=== PATIENT | female | born 1935 | race Caucasian/White ===

== ENCOUNTER → 2016-11-02 | Outpatient (CLI) | payer MEDICARE | LOC: RAD 15:53 | PROVIDERS: ATTEND Internal Medicine | DX: J20.8 Acute bronchitis due to other specified organisms (principal) | CPT/HCPCS: 71020 ==

== ENCOUNTER → 2016-11-02 | Outpatient (REF) | payer MEDICARE ==
[2016-11-02 16:52] LABS: ANION GAP 17.4 MEQ/L (3-15)
[2016-11-02 16:53] LABS: BASOPHILS % (AUTO) 1 % (0-2); EOSINOPHILS # (AUTO) 0.1 10^3uL; EOSINOPHILS % (AUTO) 1 % (0-4); MEAN CORPUSCULAR HEMOGLOBIN 29.6 PG (26.0-34.0); MEAN CORPUSCULAR HGB CONC 35.1 g/dL (31.0-37.0); MEAN CORPUSCULAR VOLUME 85 FL (80-100); MEAN PLATELET VOLUME 8.8 FL (6.0-9.5); MONOCYTES % (AUTO) 11 % (3-11); NEUTROPHILS # (AUTO) 6.4 X10^3; NEUTROPHILS % (AUTO) 70 % (51-67); PLATELET COUNT 679 10^3uL (150-450); WHITE BLOOD COUNT 9.14 10^3uL (4.0-11.0)
== END ==
LOC: LAB 15:55
PROVIDERS: ATTEND Internal Medicine
DX: J20.8 Acute bronchitis due to other specified organisms (principal); R53.1 Weakness; I10 Essential (primary) hypertension
CPT/HCPCS: 80048; 84450; 85025; 86140

== ENCOUNTER → 2016-11-06 | Outpatient (CLI) | payer MEDICARE ==
[2016-11-06 09:18] LABS: BASOPHILS % (AUTO) 1 % (0-2); EOSINOPHILS # (AUTO) 0.1 10^3uL; EOSINOPHILS % (AUTO) 1 % (0-4); LYMPHOCYTES # (AUTO) 1.1 X10^3; MEAN CORPUSCULAR HEMOGLOBIN 29.4 PG (26.0-34.0); MEAN CORPUSCULAR VOLUME 84 FL (80-100); MEAN PLATELET VOLUME 8.3 FL (6.0-9.5); MONOCYTES # (AUTO) 0.9 X10^3; MONOCYTES % (AUTO) 11 % (3-11); NEUTROPHILS # (AUTO) 5.7 X10^3; NEUTROPHILS % (AUTO) 73 % (51-67); PLATELET COUNT 663 10^3uL (150-450); WHITE BLOOD COUNT 7.91 10^3uL (4.0-11.0)
== END ==
LOC: LAB 08:53
PROVIDERS: ATTEND Internal Medicine
DX: J20.8 Acute bronchitis due to other specified organisms (principal); R53.1 Weakness
CPT/HCPCS: 36415; 80048; 85025; 86140

== ENCOUNTER → 2016-11-28 | Outpatient (CLI) | payer MEDICARE ==
[~2016-11-28] MED LIST: ALBU6.7H IH; ASPI-586 PO; ATN25T PO; CEFD300C PO; CHOL200025 PO; LEVO88TA4 PO; LOSA1TAB19 PO; METF500T4 PO; MNTL10T PO; MULT-954 PO; PRAV40TA2 PO; PRCD5U PO; SPRN25T PO
[2016-11-28 11:53] LABS: BASOPHILS % (AUTO) 1 % (0-2); EOSINOPHILS # (AUTO) 0.2 10^3uL; EOSINOPHILS % (AUTO) 1 % (0-4); LYMPHOCYTES # (AUTO) 0.6 X10^3; MEAN CORPUSCULAR HEMOGLOBIN 27.9 PG (26.0-34.0); MEAN CORPUSCULAR HGB CONC 32.4 g/dL (31.0-37.0); MEAN CORPUSCULAR VOLUME 86 FL (80-100); MONOCYTES # (AUTO) 0.7 X10^3; MONOCYTES % (AUTO) 7 % (3-11); NEUTROPHILS # (AUTO) 8.7 X10^3; NEUTROPHILS % (AUTO) 84 % (51-67); WHITE BLOOD COUNT 10.41 10^3uL (4.0-11.0)
[2016-11-28 12:13] LABS: PLATELET COUNT 989 10^3uL (150-450)
[2016-11-28 12:14] LABS: ANION GAP 19.2 MEQ/L (3-15)
== END ==
LOC: LAB 11:38
PROVIDERS: ATTEND Internal Medicine
DX: J20.8 Acute bronchitis due to other specified organisms (principal); I10 Essential (primary) hypertension; Z86.2 Personal history of diseases of the blood and blood-forming organs and certain disorders involving the immune mechanism; R53.1 Weakness
CPT/HCPCS: 36415; 80048; 84450; 85025; 86140

== ENCOUNTER 2016-12-01 19:51 | Emergency (ER) | payer MEDICARE ==
[~2016-12-01] VITALS: Ht 162.6 cm; Wt 49.6 kg
--- OUTSIDE RECORDS SUMMARY | 2016-12-01 19:57 | XMS REPORT | Continuity of Care Document ---
Author Author [facility] Address Unknown Phone Unavailable Allergies Active Description Code Type Severity Reaction Onset Reported/Identified Relationship to Patient Clinical Status Yes No Known Drug Allergies [id number] Drug Allergy Unknown N/ A 11/24/2016 Medications Problems Date Dx Coded Attending Type Code Diagnosis Diagnosed By 11/27/2014 JESSI FISHER MD Ot 599.0 03/10/2015 Ot 244.9 03/10/2015 Ot 401.1 03/10/2015 JESSI FISHER MD Ot 244.9 03/10/2015 JESSI FISHER MD Ot 276.0 03/10/2015 JESSI FISHER MD Ot 401.9 03/10/2015 JESSI FISHER MD Ot 790.29 03/10/2015 JESSI FISHER MD Ot 599.0 04/01/2015 JESSI FISHER MD Ot 244.9 04/01/2015 JESSI FISHER MD Ot 272.0 04/01/2015 JESSI FISHER MD Ot 401.9 04/01/2015 JESSI FISHER MD Ot 443.0 04/01/2015 JESSI FISHER MD Ot 733.00 04/01/2015 JESSI FISHER MD Ot 790.29 04/01/2015 JESSI FISHER MD Ot V70.0 07/07/2015 Ot E03.9 03/30/2016 JESSI FISHER MD Ot E03.9 HYPOTHYROIDISM, UNSPECIFIED 03/30/2016 JESSI FISHER MD Ot R73.09 OTHER ABNORMAL GLUCOSE 03/30/2016 JESSI FISHER MD Ot E03.9 HYPOTHYROIDISM, UNSPECIFIED 03/30/2016 JESSI FISHER MD Ot R73.09 OTHER ABNORMAL GLUCOSE 04/03/2016 JESSI FISHER MD Ot D72.829 ELEVATED WHITE BLOOD CELL COUNT, UNSPECI 04/03/2016 JESSI FISHER MD Ot E03.9 HYPOTHYROIDISM, UNSPECIFIED 04/03/2016 JESSI FISHER MD Ot E87.1 HYPO-OSMOLALITY AND HYPONATREMIA 04/03/2016 JESSI FISHER MD Ot I10 ESSENTIAL (PRIMARY) HYPERTENSION 04/03/2016 JESSI FISHER MD Ot M81.0 AGE-RELATED OSTEOPOROSIS W/O CURRENT PAT 04/03/2016 JESSI FISHER MD Ot R73.09 OTHER ABNORMAL GLUCOSE 04/03/2016 JESSI FISHER MD Ot Z00.00 ENCNTR FOR GENERAL ADULT MEDICAL EXAM W 04/03/2016 JESSI FISHER MD Ot D72.829 ELEVATED WHITE BLOOD CELL COUNT, UNSPECI 04/03/2016 JESSI FISHER MD Ot E03.9 HYPOTHYROIDISM, UNSPECIFIED 04/03/2016 JESSI FISHER MD Ot E87.1 HYPO-OSMOLALITY AND HYPONATREMIA 04/03/2016 JESSI FISHER MD Ot I10 ESSENTIAL (PRIMARY) HYPERTENSION 04/03/2016 JESSI FISHER MD Ot M81.0 AGE-RELATED OSTEOPOROSIS W/O CURRENT PAT 04/03/2016 JESSI FISHER MD Ot R73.09 OTHER ABNORMAL GLUCOSE 04/03/2016 JESSI FISHER MD Ot Z00.00 ENCNTR FOR GENERAL ADULT MEDICAL EXAM W 04/21/2016 JESSI FISHER MD Ot D72.829 ELEVATED WHITE BLOOD CELL COUNT, UNSPECI 04/21/2016 JESSI FISHER MD Ot E03.9 HYPOTHYROIDISM, UNSPECIFIED 04/21/2016 JESSI FISHER MD Ot E87.1 HYPO-OSMOLALITY AND HYPONATREMIA 04/21/2016 JESSI FISHER MD Ot I10 ESSENTIAL (PRIMARY) HYPERTENSION 04/21/2016 JESSI FISHER MD Ot M81.0 AGE-RELATED OSTEOPOROSIS W/O CURRENT PAT 04/21/2016 JESSI FISHER MD Ot R73.09 OTHER ABNORMAL GLUCOSE 04/21/2016 JESSI FISHER MD Ot Z00.00 ENCNTR FOR GENERAL ADULT MEDICAL EXAM W 04/30/2016 JESSI FISHER MD Ot D72.829 ELEVATED WHITE BLOOD CELL COUNT, UNSPECI 04/30/2016 JSESI FISHER MD Ot E03.9 HYPOTHYROIDISM, UNSPECIFIED 04/30/2016 JESSI FISHER MD Ot E87.1 HYPO-OSMOLALITY AND HYPONATREMIA 04/30/2016 JESSI FISHER MD Ot I10 ESSENTIAL (PRIMARY) HYPERTENSION 04/30/2016 JESSI FISHER MD Ot M81.0 AGE-RELATED OSTEOPOROSIS W/O CURRENT PAT 04/30/2016 JESSI FISHER MD Ot R73.09 OTHER ABNORMAL GLUCOSE 04/30/2016 JESSI FISHER MD Ot Z00.00 ENCNTR FOR GENERAL ADULT MEDICAL EXAM W / 05/01/2016 JESSI FISHER MD Ot D72.829 ELEVATED WHITE BLOOD CELL COUNT, UNSPECI 05/01/2016 JESSI FISHER MD Ot E03.9 HYPOTHYROIDISM, UNSPECIFIED 05/01/2016 JESSI FISHER MD Ot E87.1 HYPO-OSMOLALITY AND HYPONATREMIA 05/01/2016 JESSI FISHER MD Ot I10 ESSENTIAL (PRIMARY) HYPERTENSION 05/01/2016 JESSI FISHER MD Ot M81.0 AGE-RELATED OSTEOPOROSIS W/O CURRENT PAT 05/01/2016 JESSI FISHER MD Ot R73.09 OTHER ABNORMAL GLUCOSE 05/01/2016 JESSI FISHER MD Ot Z00.00 ENCNTR FOR GENERAL ADULT MEDICAL EXAM W / 11/02/2016 JESSI FISHER MD Ot J20.8 ACUTE BRONCHITIS DUE TO OTHER SPECIFIED 11/03/2016 JESSI FISHER MD Ot J20.8 ACUTE BRONCHITIS DUE TO OTHER SPECIFIED 11/04/2016 JESSI FISHER MD Ot J20.8 ACUTE BRONCHITIS DUE TO OTHER SPECIFIED 11/06/2016 JESSI FISHER MD Ot J20.8 ACUTE BRONCHITIS DUE TO OTHER SPECIFIED 11/06/2016 JESSI FISHER MD Ot J20.8 ACUTE BRONCHITIS DUE TO OTHER SPECIFIED 11/06/2016 JESSI FISHER MD Ot J20.8 ACUTE BRONCHITIS DUE TO OTHER SPECIFIED 11/07/2016 JESSI FISHER MD Ot J20.8 ACUTE BRONCHITIS DUE TO OTHER SPECIFIED 11/07/2016 JESSI FISHER MD Ot I10 ESSENTIAL (PRIMARY) HYPERTENSION 11/07/2016 JESSI FISHER MD Ot J20.8 ACUTE BRONCHITIS DUE TO OTHER SPECIFIED 11/07/2016 JESSI FISHER MD Ot R53.1 WEAKNESS 11/08/2016 JESSI FISHER MD Ot J20.8 ACUTE BRONCHITIS DUE TO OTHER SPECIFIED 11/08/2016 JESSI FISHER MD Ot J20.8 ACUTE BRONCHITIS DUE TO OTHER SPECIFIED 11/13/2016 JESSI FISHER MD, Ot J20.8 ACUTE BRONCHITIS DUE TO OTHER SPECIFIED 11/13/2016 JESSI FISHER MD Ot R53.1 WEAKNESS 11/24/2016 JESSI FISHER MD Ot I10 ESSENTIAL (PRIMARY) HYPERTENSION 11/24/2016 JESSI FISHER MD Ot J20.8 ACUTE BRONCHITIS DUE TO OTHER SPECIFIED 11/24/2016 JESSI FISHER MD Ot R53.1 WEAKNESS 11/26/2016 NIC MUÑOZ MD Ot D47.3 ESSENTIAL (HEMORRHAGIC) THROMBOCYTHEMIA 11/26/2016 NIC MUÑOZ MD Ot E03.9 HYPOTHYROIDISM, UNSPECIFIED 11/26/2016 NIC MUÑOZ MD Ot E11.9 TYPE 2 DIABETES MELLITUS WITHOUT COMPLIC 11/26/2016 NIC MUÑOZ MD Ot E78.5 HYPERLIPIDEMIA, UNSPECIFIED 11/26/2016 NIC MUÑOZ MD Ot E86.0 DEHYDRATION 11/26/2016 NIC MUÑOZ MD Ot E87.1 HYPO-OSMOLALITY AND HYPONATREMIA 11/26/2016 NIC MUÑOZ MD Ot I10 ESSENTIAL (PRIMARY) HYPERTENSION 11/26/2016 NIC MUÑOZ MD Ot J18.9 PNEUMONIA, UNSPECIFIED ORGANISM 11/26/2016 NIC MUÑOZ MD Ot J30.9 ALLERGIC RHINITIS, UNSPECIFIED 11/26/2016 NIC MUÑOZ MD Ot R79.89 OTHER SPECIFIED ABNORMAL FINDINGS OF BLO 11/26/2016 NIC MUÑOZ MD Ot Z79.84 SPOOL CLEANER HAND (CURRENT) USE OF ORAL HYPOGLYC 11/26/2016 NIC MUÑOZ MD Ot 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 11/28/2016 JESSI FISHER MD Ot J20.8 ACUTE BRONCHITIS DUE TO OTHER SPECIFIED 11/28/2016 JESSI FISHER MD, Ot J20.8 ACUTE BRONCHITIS DUE TO OTHER SPECIFIED 11/29/2016 JESSI FISHER MD, Ot J20.8 ACUTE BRONCHITIS DUE TO OTHER SPECIFIED 11/30/2016 JESSI FISHER MD, Ot J20.8 ACUTE BRONCHITIS DUE TO OTHER SPECIFIED 11/30/2016 JESSI FISHER MD, Ot R53.1 WEAKNESS 12/01/2016 JESSI FISHER MD, Ot I10 ESSENTIAL (PRIMARY) HYPERTENSION 12/01/2016 JESSI FISHER MD, Ot J20.8 ACUTE BRONCHITIS DUE TO OTHER SPECIFIED 12/01/2016 JESSI FISHER MD, Ot R53.1 WEAKNESS 12/01/2016 JESSI FISHER MD, Ot Z86.2 PRSNL HISTORY OF DIS OF THE BLD/BLD- FORM Procedures Results Test Result Range BASIC METABOLIC PANEL* - 11/02/16 16:00 Sodium measurement 191 70-110 CARBON DIOXIDE 25 22-29 Serum or plasma anion gap 17.4 3-15 BLOOD UREA NITROGEN 29 7-18 CREATININE SERUM 1.03 0.6-1.2 Brucella species antibody panel (IgG, IgM) 28 10-20 Estimated glomerular filtration rate (GFR) 62.1 Estimated glomerular filtration rate (GFR) non- 51.3 CALCIUM 9.9 8.8-10.8 ASPARTATE AMINO TRANSFERASE - 11/02/16 16:00 ASPARTATE AMINO TRANSFERASE 31 15-37 C REACTIVE PROTEIN* - 11/02/16 16:00 C REACTIVE PROTEIN* 1.10 0.0-0.9 Complete blood count (CBC) with automated white blood cell (WBC) differential - 11/02/16 16:00 Blood automated leukocyte count 9.14 4.0 -11.0 Erythrocytes 4.79 4.00-5.00 12.0-16.0;g/dL 14.2 12.0-15.5 Hematocrit 40.50 35.00-45.00 Automated erythrocyte mean corpuscular volume 85 80-100 Mean corpuscular hemoglobin (MCH) determination 29.6 26.0-34.0 Automated erythrocyte mean corpuscular hemoglobin concentration measurement ( mass/volume) 35.1 31.0-37.0 Erythrocyte distribution width 12.9 11.8 -15.6 Automated blood platelet count 679 150- 450 Automated blood platelet mean volume measurement 8.8 6.0-9.5 Automated neutrophil percentage 70 51- 67 Lymphocytes/100 leukocytes 11 20-46 Automated monocyte percentage 11 3-11 Eosinophil count auto 1 0-4 Automated basophil percentage 1 0-2 Automated blood neutrophil count 6.4 Blood lymphocytes count (number/volume) 1.0 Automated blood monocyte count 1.0 Blood absolute eosinophil count 0.1 Basophils 0.1 Complete blood count (CBC) with automated white blood cell (WBC) differential - 11/06/16 09:10 Blood automated leukocyte count 7.91 4.0 -11.0 Erythrocytes 4.73 4.00-5.00 12.0-16.0;g/dL 13.9 12.0-15.5 Hematocrit 39.70 35.00-45.00 Automated erythrocyte mean corpuscular volume 84 80-100 Mean corpuscular hemoglobin (MCH) determination 29.4 26.0-34.0 Automated erythrocyte mean corpuscular hemoglobin concentration measurement ( mass/volume) 35.0 31.0-37.0 Erythrocyte distribution width 13.0 11.8 -15.6 Automated blood platelet count 663 150- 450 Automated blood platelet mean volume measurement 8.3 6.0-9.5 Automated neutrophil percentage 73 51- 67 Lymphocytes/100 leukocytes 14 20-46 Automated monocyte percentage 11 3-11 Eosinophil count auto 1 0-4 Automated basophil percentage 1 0-2 Automated blood neutrophil count 5.7 Blood lymphocytes count (number/volume) 1.1 Automated blood monocyte count 0.9 Blood absolute eosinophil count 0.1 Basophils 0.0 SMEAR SCAN COMMENT YES BASIC METABOLIC PANEL* - 11/06/16 09:10 Sodium measurement 128 70-110 CARBON DIOXIDE 25 22-29 Serum or plasma anion gap 18.0 3-15 BLOOD UREA NITROGEN 19 7-18 CREATININE SERUM 0.97 0.6-1.2 Brucella species antibody panel (IgG, IgM) 20 10-20 Estimated glomerular filtration rate (GFR) 66.5 Estimated glomerular filtration rate (GFR) non- 55.0 CALCIUM 9.7 8.8-10.8 C REACTIVE PROTEIN* - 11/06/16 09:10 C REACTIVE PROTEIN* 0.70 0.0-0.9 PERIPHERAL SMEAR - SO - 11/06/16 09:10 PERIPHERAL SMEAR - SO WPM Comprehensive metabolic panel - 11/24/16 12:24 Sodium measurement 142 70-110 CARBON DIOXIDE 24 22-29 Serum or plasma anion gap 19.7 3-15 BLOOD UREA NITROGEN 24 7-18 CREATININE SERUM 1.05 0.6-1.2 Brucella species antibody panel (IgG, IgM) 23 10-20 Estimated glomerular filtration rate (GFR) 60.7 Estimated glomerular filtration rate (GFR) non- 50.2 OSMOLALITY,CALCULATED 259 280-300 CALCIUM 9.3 8.8-10.8 Calculated ionized calcium measurement 4.1 3.8-4.6 BILIRUBIN,TOTAL 0.8 0.1-1.0 Serum or plasma alkaline phosphatase measurement 195 38-126 ASPARTATE AMINO TRANSFERASE 275 15-37 ALANINE AMINOTRANSFERASE 283 30-65 Serum or plasma total protein measurement 7.1 6.4-8.5 Serum or plasma albumin measurement 3.4 3.4-5.0 Serum or plasma albumin/globulin mass ratio 0.918 1.1-1.8 Complete blood count (CBC) with automated white blood cell (WBC) differential - 11/24/16 12:27 Blood automated leukocyte count 15.31 4.0-11.0 Erythrocytes 4.10 4.00-5.00 12.0-16.0;g/dL 11.7 12.0-15.5 Hematocrit 34.90 35.00-45.00 Automated erythrocyte mean corpuscular volume 85 80-100 Mean corpuscular hemoglobin (MCH) determination 28.5 26.0-34.0 Automated erythrocyte mean corpuscular hemoglobin concentration measurement ( mass/volume) 33.5 31.0-37.0 Erythrocyte distribution width 13.4 11.8 -15.6 Automated blood platelet count 803 150- 450 Automated blood platelet mean volume measurement 8.5 6.0-9.5 Complete blood count, platelets with manual differential - 11/24/16 12:27 Total cell count 100 Blood segmented neutrophils percentage 90 51-67 Blood band neutrophil count as percentage of total leukocytes 2 0-6 LYMPHOCYTES % 5 20-46 Automated monocyte percentage 3 3-11 Eosinophil count auto 0 0-4 Basophils 0 0-2 NEUTROPHILS(SEG) 13.8 NEUTROPHILS # BANDS 0.3 Blood lymphocytes manual count (number/volume) 0.8 Automated blood monocyte count 0.5 Blood absolute eosinophil count 0.0 Basophils 0.0 Erythrocyte morphology assessment NORMAL NORMAL C REACTIVE PROTEIN* - 11/24/16 12:27 C REACTIVE PROTEIN* 20.00 0.0-0.9 RESPIRATORY PANEL by PCR - 11/24/16 12:33 Adenovirus DNA Negative Negative Human coronavirus 229E RNA Negative Negative Coronovirus HKU1 Negative Negative Human coronavirus NL63 RNA Negative Negative Human coronavirus OC43 RNA Negative Negative Human metapneumovirus RNA Negative Negative Rhinovirus+Enterovirus RNA Negative Negative Influenza virus A subtype Negative Negative Influenza virus B RNA Negative Negative Parainfluenza virus 1 RNA Negative Negative Parainfluenza virus 2 RNA Negative Negative Parainfluenza virus 3 RNA Negative Negative Parainfluenza virus 4 RNA Negative Negative Respiratory syncytial virus RNA Negative Negative Bordetella pertussis DNA Negative Negative Chlamydophila pneumoniae DNA Negative Negative Mycoplasma pneumoniae DNA Negative Negative Bacterial blood culture - 11/24/16 13:52 Bacterial blood culture NG5 HEPATITIS PANEL - 11/25/16 00:00 Serum or plasma hepatitis A virus IgM antibody detection by immunoassay Negative Serum or plasma hepatitis B virus core IgM antibody detection by immunoassay Negative * Serum or plasma hepatitis C virus antibody signal/cutoff by immunoassay Negative BASIC METABOLIC PANEL* - 11/25/16 05:10 Sodium measurement 110 70-110 CARBON DIOXIDE 21 22-29 Serum or plasma anion gap 16.7 3-15 BLOOD UREA NITROGEN 15 7-18 CREATININE SERUM 0.86 0.6-1.2 Brucella species antibody panel (IgG, IgM) 17 10-20 Estimated glomerular filtration rate (GFR) 76.4 Estimated glomerular filtration rate (GFR) non- 63.2 CALCIUM 8.5 8.8-10.8 Complete blood count (CBC) with automated white blood cell (WBC) differential - 11/25/16 05:10 Blood automated leukocyte count 11.69 4.0-11.0 Erythrocytes 3.51 4.00-5.00 12.0-16.0;g/dL 9.9 12.0-15.5 Hematocrit 29.50 35.00-45.00 Automated erythrocyte mean corpuscular volume 84 80-100 Mean corpuscular hemoglobin (MCH) determination 28.2 26.0-34.0 Automated erythrocyte mean corpuscular hemoglobin concentration measurement ( mass/volume) 33.6 31.0-37.0 Erythrocyte distribution width 13.4 11.8 -15.6 Automated blood platelet count 755 150- 450 Automated blood platelet mean volume measurement 8.4 6.0-9.5 Automated neutrophil percentage 83 51- 67 Lymphocytes/100 leukocytes 5 20-46 Automated monocyte percentage 8 3-11 Eosinophil count auto 2 0-4 Automated basophil percentage 0 0-2 Automated blood neutrophil count 9.8 Blood lymphocytes count (number/volume) 0.6 Automated blood monocyte count 1.0 Blood absolute eosinophil count 0.2 Basophils 0.0 SMEAR SCAN COMMENT YES HEMOGLOBIN A1C* - 11/25/16 05:10 HEMOGLOBIN A1C* 6.8 4.0-6.0 LIVER PANEL - 11/25/16 05:10 BILIRUBIN,TOTAL 0.6 0.1-1.0 Serum or plasma alkaline phosphatase measurement 170 38-126 ASPARTATE AMINO TRANSFERASE 281 15-37 ALANINE AMINOTRANSFERASE 308 30-65 Serum or plasma conjugated bilirubin/total bilirubin 0.0 0.0-0.4 Serum or plasma total protein measurement 5.8 6.4-8.5 Serum or plasma albumin measurement 2.8 3.4-5.0 THYROID STIMULATING HORMONE* - 11/25/16 05:10 THYROID STIMULATING HORMONE 0.74 0.46- 4.68 Comprehensive metabolic panel - 11/26/16 05:05 Sodium measurement 99 70-110 CARBON DIOXIDE 22 22-29 Serum or plasma anion gap 16.7 3-15 BLOOD UREA NITROGEN 9 7-18 CREATININE SERUM 0.81 0.6-1.2 Brucella species antibody panel (IgG, IgM) 11 10-20 Estimated glomerular filtration rate (GFR) 81.9 Estimated glomerular filtration rate (GFR) non- 67.7 OSMOLALITY,CALCULATED 268 280-300 CALCIUM 9.0 8.8-10.8 Calculated ionized calcium measurement 4.3 3.8-4.6 BILIRUBIN,TOTAL 0.4 0.1-1.0 Serum or plasma alkaline phosphatase measurement 154 38-126 ASPARTATE AMINO TRANSFERASE 135 15-37 ALANINE AMINOTRANSFERASE 240 30-65 Serum or plasma total protein measurement 6.2 6.4-8.5 Serum or plasma albumin measurement 2.9 3.4-5.0 Serum or plasma albumin/globulin mass ratio 0.878 1.1-1.8 Magnesium measurement - 11/26/16 05:05 Magnesium measurement 1.3 1.6-2.3 C REACTIVE PROTEIN* - 11/26/16 05:05 C REACTIVE PROTEIN* 6.90 0.0-0.9 Complete blood count (CBC) with automated white blood cell (WBC) differential - 11/26/16 05:05 Blood automated leukocyte count 9.01 4.0 -11.0 Erythrocytes 3.82 4.00-5.00 12.0-16.0;g/dL 10.7 12.0-15.5 Hematocrit 32.50 35.00-45.00 Automated erythrocyte mean corpuscular volume 85 80-100 Mean corpuscular hemoglobin (MCH) determination 28.0 26.0-34.0 Automated erythrocyte mean corpuscular hemoglobin concentration measurement ( mass/volume) 32.9 31.0-37.0 Erythrocyte distribution width 13.7 11.8 -15.6 Automated blood platelet count 852 150- 450 Automated blood platelet mean volume measurement 8.5 6.0-9.5 Automated neutrophil percentage 80 51- 67 Lymphocytes/100 leukocytes 6 20-46 Automated monocyte percentage 8 3-11 Eosinophil count auto 3 0-4 Automated basophil percentage 0 0-2 Automated blood neutrophil count 7.2 Blood lymphocytes count (number/volume) 0.6 Automated blood monocyte count 0.7 Blood absolute eosinophil count 0.3 Basophils 0.0 SMEAR SCAN COMMENT YES BASIC METABOLIC PANEL* - 11/28/16 11:45 Sodium measurement 135 70-110 CARBON DIOXIDE 23 22-29 Serum or plasma anion gap 19.2 3-15 BLOOD UREA NITROGEN 13 7-18 CREATININE SERUM 1.13 0.6-1.2 Brucella species antibody panel (IgG, IgM) 12 10-20 Estimated glomerular filtration rate (GFR) 55.8 Estimated glomerular filtration rate (GFR) non- 46.1 CALCIUM 9.1 8.8-10.8 ASPARTATE AMINO TRANSFERASE - 11/28/16 11:45 ASPARTATE AMINO TRANSFERASE 45 15-37 C REACTIVE PROTEIN* - 11/28/16 11:45 C REACTIVE PROTEIN* 2.70 0.0-0.9 Complete blood count (CBC) with automated white blood cell (WBC) differential - 11/28/16 11:45 Blood automated leukocyte count 10.41 4.0-11.0 Erythrocytes 4.20 4.00-5.00 12.0-16.0;g/dL 11.7 12.0-15.5 Hematocrit 36.10 35.00-45.00 Automated erythrocyte mean corpuscular volume 86 80-100 Mean corpuscular hemoglobin (MCH) determination 27.9 26.0-34.0 Automated erythrocyte mean corpuscular hemoglobin concentration measurement ( mass/volume) 32.4 31.0-37.0 Erythrocyte distribution width 14.1 11.8 -15.6 Automated blood platelet count 989 150- 450 Automated blood platelet mean volume measurement 8.0 6.0-9.5 Automated neutrophil percentage 84 51- 67 Lymphocytes/100 leukocytes 6 20-46 Automated monocyte percentage 7 3-11 Eosinophil count auto 1 0-4 Automated basophil percentage 1 0-2 Automated blood neutrophil count 8.7 Blood lymphocytes count (number/volume) 0.6 Automated blood monocyte count 0.7 Blood absolute eosinophil count 0.2 Basophils 0.1 Encounters ACCT No. Visit Date/Time Discharge Status Pt. Type Provider Facility Loc./Unit Complaint [id number] 11/25/2016 18:40:00 2016 11:35:00 DIS Outpatient TONI MEADOWS, [facility] MED/SURG PNEUMONIA HYPONATREMIA [id number] 03/10/2015 08:55:00 2014 23:59:59 CLS Outpatient PHILLIP MEADOWS, [facility] LAB [id number] 05/25/2014 12:23:00 2013 23:59:59 CLS Outpatient PHILLIP MEADOWS, [facility] LAB [id number] 02/05/2014 08:43:00 2013 23:59:59 CLS Outpatient PHILLIP MEADOWS, [facility] LAB [id number] 12/01/2016 19:52:00 ACT Emergency ALEYAD MEADOWS, [facility] ED [id number] 11/28/2016 11:38:00 ACT Outpatient PHILLIP MEADOWS, [facility] LAB [id number] 11/06/2016 08:53:00 ACT Outpatient PHILLIP MEADOWS, [facility] LAB [id number] 11/02/2016 15:55:00 ACT Outpatient PHILLIP MEADOWS, [facility] LAB LAB DROP OFF BY DR YOUSIF [id number] 11/02/2016 15:53:00 ACT Outpatient PHILLIP MEADOWS, [facility] RAD [id number] 03/30/2016 08:09:00 ACT Outpatient PHILLIP MEADOWS, [facility] LAB [id number] 06/14/2015 09:21:00 Document Registration [id number] 01/03/2013 08:53:00 Document Registration
--- OUTSIDE RECORDS SUMMARY | 2016-12-01 19:57 | XMS REPORT | Continuity of Care Document ---
Author Author [facility] Address Unknown Phone Unavailable Allergies Active Description Code Type Severity Reaction Onset Reported/Identified Relationship to Patient Clinical Status Yes No Known Drug Allergies [id number] Drug Allergy Unknown N/ A 11/24/2016 Medications [...] ELEVATED WHITE BLOOD CELL COUNT, UNSPECI 04/30/2016 JESSI FISHER MD Ot E03.9 HYPOTHYROIDISM, UNSPECIFIED 04/30/2016 [...] BLO 11/26/2016 NIC MUÑOZ MD Ot Z79.84 VEGETABLE WASHER (CURRENT) USE OF ORAL HYPOGLYC 11/26/2016 NIC [...] JESSI FISHER MD, Ot R53.1 WEAKNESS 12/01/2016 JESIS FISHER MD, Ot Z86.2 PRSNL HISTORY OF [...] Status Pt. Type Provider Facility Loc./Unit Complaint [id number] 11/25/2016 18:40:00 2016 11:35:00 DIS Outpatient TONI MEADOWS, [facility] MED/SURG PNEUMONIA HYPONATREMIA [id number] 03/10/2015 08:55:00 2014 23:59:59 CLS Outpatient PHILLIP MEADOWS, [facility] LAB [id number] 05/25/2014 12:23:00 2013 23:59:59 CLS Outpatient PHILLIP MEADOWS, [facility] LAB [id number] 02/05/2014 08:43:00 2013 23:59:59 CLS Outpatient PHILLIP MEADOWS, [facility] LAB [id number] 12/01/2016 19:52:00 ACT Emergency ALEYDA MEADOWS, [facility] ED [id number] 11/28/2016 11:38:00 ACT Outpatient PHILLIP MEADOWS, [facility] LAB [id number] 11/06/2016 08:53:00 ACT Outpatient PHILLIP MEADOWS, [facility] LAB [id number] 11/02/2016 15:55:00 ACT Outpatient PHILLIP MEADOWS, [facility] LAB LAB DROP OFF BY DR YOUSIF [id number] 11/02/2016 15:53:00 ACT Outpatient PHILLIP MEADOWS, [facility] RAD [id number] 03/30/2016 08:09:00 ACT Outpatient PHILLIP MEADOWS, [facility] LAB [id number] 06/14/2015 09:21:00 Document Registration [id number] 01/03/2013 08:53:00 Document Registration
[2016-12-01] MEDS ORDERED: SODIUM CHLORIDE FLUSH 10 ML SYR IV PRN (20:30)
[2016-12-01] MEDS ORDERED: SODIUM CHLORIDE FLUSH 3 ML SYR IV PRN (20:30)
[2016-12-01 20:57] LABS: BASOPHILS % (AUTO) 1 % (0-2); EOSINOPHILS # (AUTO) 0.1 10^3uL; EOSINOPHILS % (AUTO) 2 % (0-4); LYMPHOCYTES # (AUTO) 0.5 X10^3; MEAN CORPUSCULAR VOLUME 85 FL (80-100); MEAN PLATELET VOLUME 8.1 FL (6.0-9.5); MONOCYTES # (AUTO) 0.6 X10^3; MONOCYTES % (AUTO) 7 % (3-11); NEUTROPHILS # (AUTO) 6.2 X10^3; NEUTROPHILS % (AUTO) 82 % (51-67); WHITE BLOOD COUNT 7.54 10^3uL (4.0-11.0)
[2016-12-01 21:09] LABS: PLATELET COUNT 774 10^3uL (150-450)
[2016-12-01 21:10] LABS: ALBUMIN 3.5 g/dL (3.4-5.0); ALKALINE PHOSPHATASE 96 U/L (38-126); ANION GAP 17.1 MEQ/L (3-15); BUN/CREATININE RATIO 18 (10-20); CALCULATED IONIZED CALCIUM 3.9 mg/dL (3.8-4.6); TOTAL PROTEIN 7.1 g/dL (6.4-8.5)
--- NOTE | 2016-12-01 21:18 | Diagnostic Imaging Report ---
INDICATION: Chest pain. COMPARISON: 11/25/2016. FINDINGS: Stable soft tissue attenuation in the right upper hemithorax. Right basilar pleural thickening is similar. Left basilar reticular opacities are unchanged. No new pleural effusion or pneumothorax. The heart is normal in size. Atherosclerotic aorta. IMPRESSION: 1. No significant change since 11/25/2016. 2. Chronic pleural thickening within the right hemithorax. 3. Left basilar reticular opacities are similar and may relate to chronic interstitial opacities. However, superimposed acute infection or aspiration could have this appearance. Dictated by: Dictated on workstation # [id number]
[2016-12-01 23:13] VITALS: BP 133/89
== END 2016-12-01 22:40 | disposition home or self-care (01) ==
LOC: ED 19:52
DX: R00.0 Tachycardia, unspecified (principal); R07.89 Other chest pain
CPT/HCPCS: 36415; 71010; 80053; 84484; 85025; 85610; 85730; 93005; 93010; 99284; 99285

== ENCOUNTER → 2016-12-11 | Outpatient (CLI) | payer MEDICARE ==
[2016-12-11 11:08] LABS: BASOPHILS % (AUTO) 1 % (0-2); EOSINOPHILS # (AUTO) 0.1 10^3uL; EOSINOPHILS % (AUTO) 2 % (0-4); LYMPHOCYTES # (AUTO) 0.5 X10^3; MEAN CORPUSCULAR HEMOGLOBIN 28.7 PG (26.0-34.0); MEAN CORPUSCULAR VOLUME 87 FL (80-100); MEAN PLATELET VOLUME 8.6 FL (6.0-9.5); MONOCYTES # (AUTO) 0.6 X10^3; MONOCYTES % (AUTO) 10 % (3-11); NEUTROPHILS % (AUTO) 79 % (51-67); PLATELET COUNT 556 10^3uL (150-450)
[2016-12-11 11:28] LABS: ANION GAP 19.8 MEQ/L (3-15); MAGNESIUM* 1.4 mg/dL (1.6-2.3)
== END ==
LOC: LAB 10:53
PROVIDERS: ATTEND Internal Medicine
DX: Z86.79 Personal history of other diseases of the circulatory system (principal); R74.0 Nonspecific elevation of levels of transaminase and lactic acid dehydrogenase [LDH]; I10 Essential (primary) hypertension; I47.1 Supraventricular tachycardia
CPT/HCPCS: 36415; 80048; 83735; 84450; 85025; 93225

== ENCOUNTER → 2016-12-25 | Outpatient (CLI) | payer MEDICARE ==
[2016-12-25 09:30] LABS: MAGNESIUM* 1.7 mg/dL (1.6-2.3)
== END ==
LOC: LAB 08:58
PROVIDERS: ATTEND Internal Medicine
DX: I10 Essential (primary) hypertension (principal); E11.9 Type 2 diabetes mellitus without complications; Z86.79 Personal history of other diseases of the circulatory system; E03.8 Other specified hypothyroidism
CPT/HCPCS: 36415; 82947; 83735; 84443